=== PATIENT | female | born 1970 | race Caucasian/White ===

== ENCOUNTER → 2018-04-14 | Outpatient (CLI) | payer BC ==
[~2018-04-14] MED LIST: ESTR42.5 PV
--- NOTE | 2018-04-17 17:24 | RADIOLOGY IMAGING REPORT ---
FACILITY: [facility] PATIENT NAME: RUBEN IVERSON : [id number] MR: [id number] V: [id number] EXAM DATE: ORDERING PHYSICIAN: CHING ESPARZA TECHNOLOGIST: Tarah Prince PROCEDURE:BILATERAL DIGITAL SCREENING MAMMOGRAM WITH CAD ASSISTED INTERPRETATION & 3D TOMOSYNTHESIS COMPARISON:Prior mammograms 04/13/17, 04/02/16, 01/20/12. INDICATIONS:SCREENING FINDINGS: Mildly heterogeneous fibroglandular tissue is seen throughout the breasts. The parenchymal pattern has remained stable allowing for difference in mammographic technique & patient positioning. There is no evidence of malignant appearing mass, malignant appearing calcifications or other secondary sign of malignancy in either breast. DIAGNOSTIC CATEGORY 1--NEGATIVE. RECOMMENDATIONS: ROUTINE MAMMOGRAM AND CLINICAL EVALUATION. IMPRESSION: BIRADS 1: Negative. No significant abnormality is seen. Dictated by: Saira Mancini M.D. on 04/17/2018 at 10:08 Transcribed by: [email or web address] on 04/17/2018 at 11:01 Approved by: Saira Mancini M.D. on 04/17/2018 at 17:23 [facility]
== END ==
LOC: MAMO 03:03
PROVIDERS: ATTEND Obstetrics & Gynecology
DX: Z12.31 Encounter for screening mammogram for malignant neoplasm of breast (principal)
CPT/HCPCS: 77063; 77067

== ENCOUNTER → 2019-05-17 | Outpatient (CLI) | payer BC ==
[~2019-05-17] MED LIST changes: +MULT1CAP59 PO
--- NOTE | 2019-05-17 15:31 | RADIOLOGY IMAGING REPORT ---
[place] [facility] [place] NAME: RUBEN IVERSON : [id number] MR: [id number] V: [id number] EXAM DATE: [id number] ORDERING PHYSICIAN: CHING ESPARZA TECHNOLOGIST: Nena Merida PROCEDURE: BILATERAL DIGITAL SCREENING MAMMOGRAM WITH CAD ASSISTED INTERPRETATION & 3D TOMOSYNTHESIS REASON FOR STUDY: Screening. COMPARISON: 04/14/18, 04/13/17, 04/02/16. VIEWS OBTAINED: Bilateral 2D & 3D full field CC & MLO projections. BREAST DENSITY: The breast parenchyma is mostly fatty replaced. MAMMOGRAM FINDINGS: There are no new mammographic findings concerning for malignancy. No significant interval change. IMPRESSION: BIRADS 1: Negative. DIAGNOSTIC CATEGORY 1--NEGATIVE. RECOMMENDATIONS: ROUTINE MAMMOGRAM IN 1YR AND CLINICAL EVALUATION. Dictated by: Rhys Canales on 05/17/2019 at 14:44 Transcribed by: [email or web address] on 05/17/2019 at 15:18 Approved by: Rhys Canales on 05/17/2019 at 15:26 [facility]
== END ==
LOC: MAMO 03:57
PROVIDERS: ATTEND Obstetrics & Gynecology
DX: Z12.31 Encounter for screening mammogram for malignant neoplasm of breast (principal)
CPT/HCPCS: 77063; 77067